=== PATIENT | female | born 2000 | race Caucasian/White ===

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

== ENCOUNTER 2021-02-13 12:31 | Emergency (ER) | payer BC ==
[~2021-02-13] VITALS: Ht 162.6 cm; Wt 59.2 kg
[2021-02-13 12:43] VITALS: BP 128/71
--- NOTE | 2021-02-13 12:53 | PHYS DOC ---
Past History Past Medical History: No Pertinent History (GARY NEFF APRN) Past Surgical History: No Surgical History (GARY NEFF APRN) Smoking: Non-smoker Alcohol Use: Rarely Drug Use: None (GARY NEFF APRN) General Adult EDM: Chief Complaint: FLANK PAIN HPI: HPI: Patient is a 20-year-old female being seen in the ER for left flank pain that radiates into her abdomen. Patient reports that she went to an urgent care yesterday and they told her she had blood in her urine but no infection. Patient does not have a history of kidney stones. Patient reports that she started her menstrual cycle 1 week ago and it just ended 2 days ago. Patient denies dysuria, fevers, vomiting. She rates her pain 3 out of 10. Patient has a history of UTIs. (GARY NEFF APRN) Review of Systems: Review of Systems: 14 body systems of the review of systems have been reviewed. See HPI for pertinent positive and negative responses, otherwise all other systems are negative, nonpertinent or noncontributory (GARY NEFF APRN) Allergies: Allergies: Allergies Coded Allergies Type Severity Reaction Last Updated Verified vancomycin Allergy Unknown 12/27/15 Yes (GARY NEFF APRN) Physical Exam: PE: Constitutional: Well developed, well nourished, no acute distress, non-toxic appearance. [] HENT: Normocephalic, atraumatic Eyes: PERRL, EOMI, conjunctiva normal, no discharge. [] Neck: Normal range of motion, no tenderness, supple, no stridor. [] Cardiovascular:Heart rate regular rhythm, no murmur [] Lungs & Thorax: Bilateral breath sounds clear to auscultation [] Abdomen: Bowel sounds normal, soft, no tenderness, no masses, no pulsatile masses. [] Skin: Warm, dry, no erythema, no rash. [] Back: No tenderness, no CVA tenderness. [] Extremities: No tenderness, no cyanosis, no clubbing, ROM intact, no edema. [] Neurologic: Alert and oriented X 3, normal motor function, normal sensory function, no focal deficits noted. [] Psychologic: Affect normal, judgement normal, mood normal. [] (GARY NEFF APRN) Current Patient Data: Labs: Laboratory Tests Test 02/13/21 12:52 Urine Collection Type Unknown Urine Color Yellow Urine Clarity Clear Urine pH 6.5 Urine Specific [place] 1.010 Urine Protein Neg Urine Glucose (UA) Neg mg/dL Urine Ketones (Stick) Neg mg/dL Urine Blood Neg Urine Nitrite Neg Urine Bilirubin Neg Urine Urobilinogen Dipstick 0.2 mg/dL Urine Leukocyte Esterase Neg Urine RBC 0 /HPF Urine WBC 0 /HPF Urine Squamous Epithelial Cells Few /LPF Urine Bacteria 0 /HPF Vital Signs: Vital Signs Date Time Temp Pulse Resp B/P (MAP) Pulse Ox O2 Delivery O2 Flow Rate FiO2 02/13/21 12:43 98.0 85 20 128/71 100 Room Air (GARY NEFF APRN) EKG: EKG: [] (GARY NEFF APRN) Radiology/Procedures: Radiology/Procedures: PROCEDURE: CT ABDOMEN PELVIS WO CONTRAST Examination: CT of the abdomen pelvis without contrast HISTORY: History of flank pain COMPARISON: 02/09/2016 TECHNIQUE: Axial CT images of the abdomen pelvis were performed without contrast. Coronal and sagittal reformats are performed Exposure: One or more of the following individualized dose reduction techniques were utilized for this examination: 1. Automated exposure control 2. Adjustment of the mA and/or kV according to patient size 3. Use of iterative reconstruction technique FINDINGS: The bibasilar lungs are clear. No evidence of free air identified in the abdomen.The evaluation of the solid organs is limited due to lack of IV contrast. The evaluation of bowel is limited due to lack of oral contrast. The visualized noncontrasted liver, spleen, adrenals grossly appears unremarkable. The gallbladder is mildly distended. The stomach is mildly distended. The visualized pancreas grossly appears unremarkable. Mild fluid distended small bowel loops identified in the lower abdomen. The appendix is not well- visualized. Feces and gas noted in the colon. Punctate 1 mm calculus left kidney. Small amount of free fluid identified in the pelvis. No evidence of lytic bony destructive lesion. IMPRESSION: 1. Mild fluid distended small bowel loops identified in the lower abdomen could be mild enteritis. 2. Punctate 1 mm calculus left kidney. Electronically signed by: Sj Wang MD (02/13/2021 2:01 PM) [id number] DICTATED AND SIGNED BY: SJ WANG MD DATE: 02/13/21 1342 CC: GARY NEFF APRN; DESI PATE PAC ~MTH0 0 [] (GARY NEFF APRN) Heart Score: C/O Chest Pain: No Risk Factors: Risk Factors: DM, Current or recent (<one month) smoker, HTN, HLP, family history of CAD, obesity. Risk Scores: Score 0 - 3: 2.5% MACE over next 6 weeks - Discharge Home Score 4 - 6: 20.3% MACE over next 6 weeks - Admit for Clinical Observation Score 7 - 10: 72.7% MACE over next 6 weeks - Early Invasive Strategies (GARY NEFF APRN) Course & Med Decision Making: Course & Med Decision Making Pertinent Labs and Imaging studies reviewed. (See chart for details) [] Patient is a 20-year-old female being seen in the ER for left flank pain radiating to her abdomen. Work-up in the ER consisted of urinalysis which showed no acute findings. Patient was not noted to have bacteria or blood in her urine. Patient is requesting a CT scan of her abdomen to rule out a kidney stone. This was performed and it was negative for any kidney stone with hydroureter, she was noted to have a 1 mm stone still in the left kidney. Patient advised to increase her fluids and take Tylenol/ibuprofen for her pain. I discussed with patient all findings and diagnostic testing as well as the need to follow-up with PCP for further evaluation and treatment or return to the ER if any new or worsening symptoms. Strict return precautions were also discussed at length. Patient voiced understanding and agreement with the plan. Patient is hemodynamically stable at the time of disposition. (GARY NEFF APRN) Course & Med Decision Making I was the Attending physician on the above date of service of this patient. This patient was evaluated, examined, treated, and dispositioned from the emergency department by the mid-level practitioner. Although I was working at the time , no assistance was requested. Electronically signed, Jesus Alberto Garcia DO (JESUS ALBERTO GARCIA DO) Jordy Disclaimer: Jordy Disclaimer: This electronic medical record was generated, in whole or in part, using a voice recognition dictation system. (GARY NEFF APRN) Departure Departure: Impression: Primary Impression: Flank pain Disposition: HOME / SELF CARE / HOMELESS Condition: GOOD Referrals: DESI PATE PAC (PCP) Patient Instructions: Flank Pain Additional Instructions: You were seen in the ER for left flank pain. Your physical exam was reassuring. Your urine was negative for any infection or blood. The CT scan of your abdomen was negative for any acute findings. You were noted to have a 1 mm stone that still in your left kidney, these typically do not cause any pain. You were noted to have some enteritis, this means that you may have a GI bug. Please increase your fluids at home. You can take Tylenol/ibuprofen for your pain. Please follow-up with your primary care provider Monday regarding your ER visit. If you develop worsening of your pain, intractable nausea or vomiting, blood in your urine, dysuria please return to the ER immediately. EMERGENCY DEPARTMENT GENERAL DISCHARGE INSTRUCTIONS Thank you for coming to [facility] (ED) today and trusting us with you care. We trust that you had a positivie experience in our Emergency Department. If you wish to speak to the department management, you may call the director at [phone]. YOUR FOLLOW UP INSTRUCTIONS ARE FOLLOWS: 1. Do you have a private Doctor? If you do not have a private doctor, please ask for a resource list of physicians or clinics that may be able to assist you with follow up care. 2. The Emergency Physician has interpreted your x-rays. The X-Ray specialist will also review them. If there is a change in the findings, you will be notified in 48 hours when at all possible. 3. A lab test or culture has been done, your results will be reviewed and you will be notified if you need a change in treatment. ADDITIONAL INSTRUCTIONS AND INFORMATION: 1. Your care today has been supervised by a physician who is specially trained in emergency care. Many problems require more than one evaluation for a complete diagnosis and treatment. We recommend that you schedule your follow up appointment as recommended to ensure complete treatment of you illness or injury. If you are unable to obtain follow up care and continue to have a problem, or if your condition worsens, we recommend that you return to the ED. 2. We are not able to safely determine your condition over the phone nor are we able to give sound medical advice over the phone. For these safety reasons, if you call for medical advice we will ask you to come to the ED for further evaluation. 3. If you have any questions regarding these discharge instructions please call the ED at [phone]. SAFETY INFORMATION: In the interest of safety, wellness, and injury prevention; we encourage you to wear your sealbelt, if you smoke; quite smoking, and we encourage family to use a protective helmet for bicycling and other sporting events that present an increased risk for head injury. IF YOUR SYMPTOMS WORSEN OR NEW SYMPTOMS DEVELOP, OR YOU HAVE CONCERNS ABOUT YOUR CONDITION; OR IF YOUR CONDITION WORSENS WHILE YOU ARE WAITING FOR YOUR FOLLOW UP APPOINTMENT; EITHER CONTACT YOUR PRIMARY CARE DOCTOR, THE PHYSICIAN WHOSE NAME AND NUMBER YOU WERE GIVEN, OR RETURN TO THE ED IMMEDIATELY. GARY NEFF APRN Feb 13, 2021 12:53 JESUS ALBERTO GARCIA DO Feb 14, 2021 06:25
[2021-02-13 13:16] LABS: BACTERIA,URINE 0 /HPF (0-FEW); BILIRUBIN,URINE NEG (NEG); CLARITY,URINE CLEAR; COLOR,URINE YELLOW; GLUCOSE,URINE NEG (NEG); NITRITE,URINE NEG (NEG); RBC,URINE 0 /HPF (0-2); SQUAMOUS EPITHELIAL CELL,UR FEW /LPF; UROBILINOGEN,URINE 0.2 mg/dL (0.2 mg/dL); WBC,URINE 0 /HPF (0-4)
--- NOTE | 2021-02-13 14:03 | RAD ---
Examination: CT of the abdomen pelvis without contrast HISTORY: History of flank pain COMPARISON: 02/09/2016 TECHNIQUE: Axial CT images of the abdomen pelvis were performed without contrast. Coronal and sagitta l reformats are performed Exposure: One or more of the following individualized dose reduction techniques were utilized for thi s examination: 1. Automated exposure control 2. Adjustment of the mA and/or kV according to patient size 3. Use of iterative reconstruction technique FINDINGS: The bibasilar lungs are clear. No evidence of free air identified in the abdomen.The evaluation of t he solid organs is limited due to lack of IV contrast. The evaluation of bowel is limited due to lack of oral contrast. The visualized noncontrasted liver, spleen, adrenals grossly appears unremarkable. The gallbladder is mildly distended. The stomach is mildly distended. The visualized pancreas grossl y appears unremarkable. Mild fluid distended small bowel loops identified in the lower abdomen. The a ppendix is not well-visualized. Feces and gas noted in the colon. Punctate 1 mm calculus left kidney. Small amount of free fluid identified in the pelvis. No evidence of lytic bony destructive lesion. IMPRESSION: 1. Mild fluid distended small bowel loops identified in the lower abdomen could be mild enteritis. 2. Punctate 1 mm calculus left kidney. Electronically signed by: Sj Wang MD (02/13/2021 2:01 PM) [id number]
== END 2021-02-13 14:30 | disposition home or self-care (01) ==
LOC: ER 12:31
DX: R10.9 Unspecified abdominal pain (principal); R31.9 Hematuria, unspecified; Z88.1 Allergy status to other antibiotic agents; Z87.442 Personal history of urinary calculi
CPT/HCPCS: 74176; 81001; 99284-25

== ENCOUNTER 2021-07-04 17:42 | Emergency (ER) | payer BC ==
[~2021-07-04] VITALS: Ht 160 cm; Wt 59.2 kg
--- NOTE | 2021-07-04 18:01 | PHYS DOC ---
Past History Past Medical History: No Pertinent History, UTI Past Surgical History: No Surgical History Smoking: Non-smoker Alcohol Use: None Drug Use: None General Adult HPI: HPI: ",, I have pain when I urinate...burning".. ".. I eet these urinary tract infection occasionally.." "... 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 Pt. follows with Dr. Pate. Pt. denies any vaginal discharge. Patient denies any history immunosuppression. Patient denies any recent travel. Patient denies any trauma. Patient normally healthy and healthy. Patient has had previous urinary tract infection. Patient's throat has also been sore the last couple days. No history of oral sex. Review of Systems: Review of Systems: Constitutional: Denies fever or chills Eyes: Denies change in visual acuity HENT: Patient complains of sore throat Respiratory: Denies cough or shortness of breath Cardiovascular: Denies chest pain or edema GI: Denies abdominal pain, nausea, vomiting, bloody stools or diarrhea complains of dysuria Musculoskeletal: Denies back pain or joint pain Integument: Denies rash Neurologic: Denies headache, focal weakness or sensory changes Endocrine: Denies polyuria or polydipsia Lymphatic: Denies swollen glands Psychiatric: Denies depression or anxiety Family History: Family History: Noncontributory Current Medications: Current Meds: See Nursing for home meds. Allergies: Allergies: Allergies Coded Allergies Type Severity Reaction Last Updated Verified vancomycin Allergy Unknown 12/27/15 Yes Physical Exam: PE: Constitutional: Well developed, well nourished, no acute distress, non-toxic appearance. [] HENT: Normocephalic, atraumatic, bilateral external ears normal, oropharynx moist, mild injection of pharynx no oral exudates, nose normal. [] Lip stud. Eyes: PERRLA, EOMI, conjunctiva normal, no discharge. Glasses. Neck: Normal range of motion, no tenderness, supple, no stridor. [] No adenopathy anterior chain Cardiovascular:Heart rate regular rhythm, no murmur [] Lungs & Thorax: Bilateral breath sounds clear to auscultation [] Abdomen: Bowel sounds decreased, soft, bilateal flank tenderness, no masses, no pulsatile masses. [] No rebound tenderness. Skin: Warm, dry, no erythema, no rash. [] Back: No tenderness, bilateral CVA tenderness. [] Extremities: No tenderness, no cyanosis, no clubbing, ROM intact, no edema. [] No psoas sign. Neurologic: Alert and oriented X 3, normal motor function, normal sensory function, no focal deficits noted. [] Psychologic: Affect normal, judgement normal, mood normal. [] EKG: EKG: [] Radiology/Procedures: Radiology/Procedures: [] Heart Score: C/O Chest Pain: N/A Risk Factors: Risk Factors: DM, Current or recent (<one month) smoker, HTN, HLP, family history of CAD, obesity. Risk Scores: Score 0 - 3: 2.5% MACE over next 6 weeks - Discharge Home Score 4 - 6: 20.3% MACE over next 6 weeks - Admit for Clinical Observation Score 7 - 10: 72.7% MACE over next 6 weeks - Early Invasive Strategies Course & Med Decision Making: Course & Med Decision Making Pertinent Labs and Imaging studies reviewed. (See chart for details) Reports pharmacy drinks. Take Tylenol and ibuprofen for discomfort. Take Bactrim DS twice a day. Follow-up with primary care. Follow-up cultured. Return if any concerns. Push vitamin C drinks. Gargle with Listerine 4 times a day. Follow-up primary care. Impression: 1. Dysuria/ UTI 2. Pharyngitis-suspect viral [] Jordy Disclaimer: Jordy Disclaimer: This electronic medical record was generated, in whole or in part, using a voice recognition dictation system. Departure Departure: Referrals: DESI PATE PAC (PCP) Scripts Fluconazole (DIFLUCAN) 100 Mg Tablet 100 MG PO DAILY for take post anti complete for 3 Days, #3 TAB Prov: CHARMAINE GOMEZ MD 07/04/21 Sulfamethoxazole/Trimethoprim (BACTRIM DS TABLET) 1 Each Tablet 1 TAB PO BID for uti for 7 Days, #14 TAB 0 Refills Prov: CHARMAINE GOMEZ MD 07/04/21 CHARMAINE GOMEZ MD Jul 04, 2021 18:01
[2021-07-04 18:26] VITALS: BP 137/80
[2021-07-04 19:07] LABS: U PREG PATIENT NEGATIVE (NEG)
[2021-07-04 19:08] LABS: CLARITY,URINE HAZY
[2021-07-04 19:09] LABS: COLOR,URINE ORANGE
[2021-07-04 19:10] LABS: BACTERIA,URINE MANY /HPF (0-FEW); SQUAMOUS EPITHELIAL CELL,UR FEW /LPF; WBC,URINE TNTC /HPF (0-4)
[2021-07-04] MEDS ORDERED: SMZ/TMP 800/160MG TABLET. PO ONE (19:30)
[2021-07-04] MEDS ORDERED: FLUC100T7 PO (19:32)
[2021-07-04] MEDS ORDERED: SULF1TAB24 PO (19:32)
== END 2021-07-04 20:50 | disposition home or self-care (01) ==
LOC: ER 17:42
DX: J02.9 Acute pharyngitis, unspecified (principal); R30.0 Dysuria; Z87.440 Personal history of urinary (tract) infections; Z88.1 Allergy status to other antibiotic agents
CPT/HCPCS: 81001; 81025; 87077; 87086; 87186; 99283